=== PATIENT | female | born 1990 | race African-American/Black ===

== ENCOUNTER 2018-03-02 16:42 | Emergency (ER) | payer BC ==
[~2018-03-02] VITALS: Ht 160 cm; Wt 52.0 kg
[2018-03-02 17:49] LABS: BASOPHILS % 0.3 % (0.0-2.0); EOSINOPHILS % 0.3 % (0.0-5.0); HEMATOCRIT. 38.5 % (36.0-48.0); HEMOGLOBIN. 12.6 g/dL (12.0-16.0); LYMPHOCYTES % 15.5 % (20.0-50.0); MEAN CORPUSCULAR HEMOGLOBIN 27.1 pg (28.0-32.0); MEAN CORPUSCULAR VOLUME 82.7 fL (81.0-99.0); MEAN PLATELET VOLUME 8.9 fl (7.4-10.4); MONOCYTES % 7.3 % (2.0-8.0); NEUTROPHILS % 76.6 % (40.0-76.0); PLATELET 226 x1000/uL (130-400); RED BLOOD CELL COUNT 4.65 mill/uL (4.2-5.4); RED CELL DISTRIBUTION WIDTH 16.7 % (11.6-14.6)
[2018-03-02 17:53] LABS: CHLORIDE 102 mEq/L (98-107)
[2018-03-02 17:55] LABS: INR 1.1; PROTHROMBIN TIME 11.9 sec (9.4-11.6)
[2018-03-02 18:05] LABS: CLARITY URINE CLOUDY (CLEAR); COLOR URINE YELLOW (YELLOW); KETONES URINE 4+ (NEGATIVE); LEUKOCYTE ESTERASE URINE TRACE (NEGATIVE); NITRITE URINE NEGATIVE (NEGATIVE); OCCULT BLOOD URINE 1+ (NEGATIVE); PH URINE 6.5 (4.5-8.0); PROTEIN URINE TRACE (NEGATIVE); SPECIFIC GRAVITY URINE 1.034 (1.005-1.030); UROBILINOGEN URINE 0.2 E.U./dL (0.2-1.0)
[2018-03-02 18:16] LABS: B-HCG QUANTITATIVE 153949 mIU/mL (<3)
[2018-03-02] MEDS ORDERED: SODIUM CHLORIDE 0.9% 1,000 ML IV ONE (18:20)
[2018-03-02] MEDS ORDERED: ONDANSETRON HCL 4MG/2ML VIAL IV STA (18:20)
[2018-03-02] MEDS ORDERED: MAGNESIUM/ALUMINUM HYDROXIDE/SIMETHICONE 30ML UDC PO STA (18:20)
[2018-03-02] MEDS ORDERED: PANTOPRAZOLE SODIUM 40 MG/VIAL IV ONE (18:30)
[2018-03-02 22:50] VITALS: BP 103/51
== END 2018-03-03 04:39 | disposition home or self-care (01) ==
LOC: ER 16:44
DX: O21.0 Mild hyperemesis gravidarum (principal); O23.11 Infections of bladder in pregnancy, first trimester; O20.0 Threatened abortion; Z3A.08 8 weeks gestation of pregnancy
CPT/HCPCS: 36415; 76801; 80053; 81003; 83690; 84702; 85025; 85610; 86850; 86900; 86901; 96361; 96374; 96375; 99285; C9113; J2405; J7030

== ENCOUNTER 2018-10-04 13:04 | Observation (INO) | payer BC ==
[~2018-10-04 13:04] MED LIST: ACET-2178 PO; PREN1TAB23 PO
== END 2018-10-04 13:45 | disposition left against medical advice (07) ==
LOC: 8 EST LDRP 13:04
PROVIDERS: ADMIT Specialist; ATTEND Specialist
DX: O62.9 Abnormality of forces of labor, unspecified (principal); Z3A.38 38 weeks gestation of pregnancy
CPT/HCPCS: 99281; G0378

== ENCOUNTER 2018-10-04 14:13 | Inpatient (IN) | payer BC ==
[~2018-10-04] VITALS: Ht 160 cm; Wt 66.7 kg
[2018-10-04] MEDS ORDERED: NALOXONE HCL 0.4 MG/ML 1ML VIAL IM PRN (14:45)
[2018-10-04] MEDS ORDERED: LIDOCAINE HCL 1% 20ML VIAL (Pyxis) INJ INFIL PRN (14:45)
[2018-10-04] MEDS ORDERED: BUTORPHANOL TARTRATE 2 MG/ML VIAL IV PRN (14:45)
[2018-10-04] MEDS ORDERED: METHYLERGONOVINE MALEATE 0.2 MG/ML IM PRN (14:45)
[2018-10-04] MEDS ORDERED: MISOPROSTOL 100MCG TABLET VG PRN (14:45)
[2018-10-04 15:22] LABS: BASOPHILS % 0.2 % (0.0-2.0); EOSINOPHILS % 0.2 % (0.0-5.0); HEMATOCRIT. 35.8 % (36.0-48.0); LYMPHOCYTES % 14.5 % (20.0-50.0); MEAN CORPUSCULAR HEMOGLOBIN 30.4 pg (28.0-32.0); MEAN CORPUSCULAR VOLUME 90.6 fL (81.0-99.0); MEAN PLATELET VOLUME 9.7 fl (7.4-10.4); MONOCYTES % 5.5 % (2.0-8.0); NEUTROPHILS % 79.6 % (40.0-76.0); PLATELET 244 x1000/uL (130-400); RED BLOOD CELL COUNT 3.95 mill/uL (4.2-5.4); RED CELL DISTRIBUTION WIDTH 13.6 % (11.6-14.6)
[2018-10-04] MEDS: LACTATED RINGERS 1,000 ML IV SCH ×3 (15:23→20:41)
[2018-10-04 15:27] LABS: PARTIAL THROMBOPLASTIN TIME 29.5 sec (23.4-31.0)
[2018-10-04 15:27] LABS: CLARITY URINE CLEAR (CLEAR); COLOR URINE YELLOW (YELLOW); KETONES URINE NEGATIVE (NEGATIVE); LEUKOCYTE ESTERASE URINE TRACE (NEGATIVE); NITRITE URINE NEGATIVE (NEGATIVE); OCCULT BLOOD URINE NEGATIVE (NEGATIVE); PROTEIN URINE NEGATIVE (NEGATIVE); SPECIFIC GRAVITY URINE 1.009 (1.005-1.030); UROBILINOGEN URINE 0.2 E.U./dL (0.2-1.0)
[2018-10-04 15:42] LABS: *COCAINE SCREEN URINE NEGATIVE (NEGATIVE); CANNABINOID URINE SCREEN NEGATIVE (NEGATIVE); METHADONE URINE SCREEN NEGATIVE (NEGATIVE); OPIATES URINE SCREEN NEGATIVE (NEGATIVE); PHENCYCLIDINE URINE SCREEN NEGATIVE (NEGATIVE)
[2018-10-04 15:43] LABS: *AMPHETAMINES SCREEN URINE NEGATIVE (NEGATIVE); *BARBITURATES SCREEN URINE NEGATIVE (NEGATIVE); *BENZODIAZEPINES SCREEN URINE NEGATIVE (NEGATIVE)
[2018-10-04 16:03] LABS: HEPATITIS B SURFACE ANTIGEN NEGATIVE
[2018-10-04] MEDS: DEXT 5%/LR + PITOCIN 20UNITS/L 1,000 ML IV SCH (17:11)
[2018-10-04] MEDS ORDERED: DEXT 5%/LR + PITOCIN 20UNITS/L 1,000 ML IV SCH (23:35)
[2018-10-04] MEDS ORDERED: DIPHENHYDRAMINE 25MG CAPSULE PO PRN (23:45)
[2018-10-04] MEDS ORDERED: HEMORRHOIDAL SUPP PR PRN (23:45)
[2018-10-04] MEDS ORDERED: BISACODYL 10MG SUPP PR PRN (23:45)
[2018-10-04] MEDS ORDERED: GLYCERIN/WITCH HAZEL LEAF MEDICATED PAD TOP PRN (23:45)
[2018-10-04] MEDS ORDERED: ACETAMINOPHEN WITH CODEINE 300/30MG TABLET PO PRN (23:45)
[2018-10-04] MEDS ORDERED: TETANUS, DIPHTHERIA, PERTUSSIS VAC/PF 0.5ML (>7YR OLD) IM ONE (23:45)
[2018-10-04] MEDS ORDERED: IBUPROFEN 400MG TABLET PO PRN (23:45)
[2018-10-04] MEDS ORDERED: BENZOCAINE/LANOLIN/ALOE VERA SPRAY TOP PRN (23:45)
[2018-10-04] MEDS ORDERED: INFLUENZA VIRUS VACCINE(AFLURIA) 0.5ML SYR IM ONE (23:45)
[2018-10-04] MEDS ORDERED: LANOLIN OINT 0.25 GM TUBE TOP PRN (23:45)
[2018-10-05] MEDS: DEXT 5%/LR + PITOCIN 20UNITS/L 1,000 ML IV SCH (01:00)
[2018-10-05 01:15] VITALS: BP 132/80
[2018-10-05 02:00] VITALS: BP 126/79
[2018-10-05 08:00] VITALS: BP 104/43
[2018-10-05] MEDS: PRENATAL VIT/FE FUMARATE/FA TABLET PO SCH (09:11)
[2018-10-05] MEDS: FERROUS SULFATE 325MG TABLET PO SCH ×2 (12:48→17:21)
[2018-10-05] MEDS: IBUPROFEN 800MG TABLET PO PRN ×2 (14:47→20:36)
[2018-10-05 16:09] VITALS: BP 130/81
[2018-10-05 20:00] VITALS: BP 125/59
[2018-10-05] MEDS ORDERED: DOCUSATE SODIUM 100MG CAPSULE PO SCH (21:00)
[2018-10-06 01:18] VITALS: BP 108/57
[2018-10-06 04:00] VITALS: BP 99/50
[2018-10-06 09:00] VITALS: BP 113/72
[2018-10-06] MEDS: FERROUS SULFATE 325MG TABLET PO SCH (09:00)
[2018-10-06] MEDS: PRENATAL VIT/FE FUMARATE/FA TABLET PO SCH (09:00)
== END 2018-10-06 11:20 | disposition home or self-care (01) | DRG 807 ==
LOC: 8 EST LDRP 14:13 → OBSVTOIN 14:13 → 8EST 10-05 01:15
PROVIDERS: ADMIT Specialist; ATTEND Specialist
PROC: 10E0XZZ Delivery of Products of Conception, External Approach (ICD-10-PCS; principal; 2018-10-04)
PROC: 0HQ9XZZ Repair Perineum Skin, External Approach (ICD-10-PCS; 2018-10-04)
PROC: 3E0R3BZ Introduction of Anesthetic Agent into Spinal Canal, Percutaneous Approach (ICD-10-PCS; 2018-10-04)
PROC: 00HU33Z Insertion of Infusion Device into Spinal Canal, Percutaneous Approach (ICD-10-PCS; 2018-10-04)
PROC: 0W8NXZZ Division of Female Perineum, External Approach (ICD-10-PCS; 2018-10-04)
DX: O70.0 First degree perineal laceration during delivery (principal); Z37.0 Single live birth; Z3A.38 38 weeks gestation of pregnancy; Z80.0 Family history of malignant neoplasm of digestive organs; Z80.3 Family history of malignant neoplasm of breast
CPT/HCPCS: 36415; 80305; 86592; 86703; 86762; 86850; 86900; 87340; 90715; 99281; G0378; J2590; J3490; A4315

== ENCOUNTER 2021-02-11 13:59 | Emergency (ER) | payer BC ==
[~2021-02-11] VITALS: Ht 165.1 cm; Wt 59.0 kg
[~2021-02-11 13:59] MED LIST changes: -ACET-2178 PO
[2021-02-11] MEDS ORDERED: SODIUM CHLORIDE 0.9% 1,000 ML IV ONE (14:45)
[2021-02-11] MEDS ORDERED: ONDANSETRON HCL 4MG/2ML INJ IV NR (14:45)
[2021-02-11 14:55] LABS: CLARITY URINE CLEAR (CLEAR); COLOR URINE DARK YELLOW (YELLOW); KETONES URINE 2+ (NEGATIVE); LEUKOCYTE ESTERASE URINE NEGATIVE (NEGATIVE); NITRITE URINE NEGATIVE (NEGATIVE); OCCULT BLOOD URINE NEGATIVE (NEGATIVE); PH URINE 7.5 (4.5-8.0); PROTEIN URINE TRACE (NEGATIVE); SPECIFIC GRAVITY URINE 1.028 (1.005-1.030); UROBILINOGEN URINE 0.2 E.U./dL (0.2-1.0)
[2021-02-11 15:09] LABS: BASOPHILS % 0.3 % (0.0-2.0); EOSINOPHILS % 0.1 % (0.0-5.0); HEMATOCRIT. 34.6 % (36.0-48.0); HEMOGLOBIN. 11.8 g/dL (12.0-16.0); LYMPHOCYTES % 15.2 % (20.0-50.0); MEAN CORPUSCULAR HEMOGLOBIN 27.9 pg (28.0-32.0); MEAN CORPUSCULAR VOLUME 81.6 fL (81.0-99.0); MEAN PLATELET VOLUME 8.8 fl (7.4-10.4); MONOCYTES % 5.9 % (2.0-8.0); NEUTROPHILS % 78.5 % (40.0-76.0); PLATELET 232 x1000/uL (130-400); RED BLOOD CELL COUNT 4.24 mill/uL (4.2-5.4); RED CELL DISTRIBUTION WIDTH 18.3 % (11.6-14.6)
[2021-02-11 15:13] LABS: CHLORIDE 105 mEq/L (98-107)
[2021-02-11 15:57] LABS: B-HCG QUANTITATIVE 175490 mIU/mL (<3)
[2021-02-11] MEDS ORDERED: METO-293 MT (16:31)
[2021-02-11] MEDS ORDERED: PYRI25TA4 PO (16:31)
[2021-02-11 17:59] VITALS: BP 126/72
== END 2021-02-11 20:17 | disposition home or self-care (01) ==
LOC: ER 13:59
DX: O21.0 Mild hyperemesis gravidarum (principal); Z3A.11 11 weeks gestation of pregnancy
CPT/HCPCS: 36415; 76801; 76817; 80053; 81003; 81025; 83690; 84702; 85025; 93005; 96361; 96374; 99285; J2405; Z7610

== ENCOUNTER 2021-08-13 17:22 | Observation (INO) | payer BC ==
[~2021-08-13] VITALS: Ht 160 cm; Wt 65.8 kg
[~2021-08-13 17:22] MED LIST changes: +METO-293 MT; +PYRI25TA4 PO
[2021-08-13 18:41] LABS: BASOPHILS % 0.2 % (0.0-2.0); EOSINOPHILS % 0.8 % (0.0-5.0); HEMATOCRIT. 29.3 % (36.0-48.0); HEMOGLOBIN. 9.9 g/dL (12.0-16.0); LYMPHOCYTES % 21.3 % (20.0-50.0); MEAN CORPUSCULAR HEMOGLOBIN 30.3 pg (28.0-32.0); MEAN CORPUSCULAR VOLUME 89.8 fL (81.0-99.0); MEAN PLATELET VOLUME 8.6 fl (7.4-10.4); MONOCYTES % 11.7 % (2.0-8.0); PLATELET 267 x1000/uL (130-400); RED BLOOD CELL COUNT 3.26 mill/uL (4.2-5.4); RED CELL DISTRIBUTION WIDTH 13.5 % (11.6-14.6)
[2021-08-13 18:43] LABS: CLARITY URINE CLOUDY (CLEAR); COLOR URINE YELLOW (YELLOW); KETONES URINE TRACE (NEGATIVE); LEUKOCYTE ESTERASE URINE 1+ (NEGATIVE); NITRITE URINE NEGATIVE (NEGATIVE); OCCULT BLOOD URINE NEGATIVE (NEGATIVE); PH URINE 6.5 (4.5-8.0); PROTEIN URINE 1+ (NEGATIVE); SPECIFIC GRAVITY URINE 1.018 (1.005-1.030); UROBILINOGEN URINE 0.2 E.U./dL (0.2-1.0)
[2021-08-13 18:55] LABS: CHLORIDE 106 mEq/L (98-107)
[2021-08-13 18:57] LABS: D-DIMER 7.7 mg/L FEU (<0.50); PARTIAL THROMBOPLASTIN TIME 28.5 sec (23.4-31.0); PROTHROMBIN TIME 10.8 sec (9.6-11.0)
== END 2021-08-13 19:15 | disposition home or self-care (01) ==
LOC: 8 EST LDRP 17:22
PROVIDERS: ADMIT Obstetrics & Gynecology; ATTEND Obstetrics & Gynecology
DX: O26.893 Other specified pregnancy related conditions, third trimester (principal); R03.0 Elevated blood-pressure reading, without diagnosis of hypertension; Z79.01 Long term (current) use of anticoagulants; Z3A.38 38 weeks gestation of pregnancy
CPT/HCPCS: 36415; 59025; 76815; 76818; 80053; 81003; 84550; 85025; 85379; 85384; 85610; 85730; G0378; 99281; G0379

== ENCOUNTER 2021-08-19 07:05 | Observation (INO) | payer BC | END 2021-08-19 10:15 | disposition home or self-care (01) | LOC: 8 EST LDRP 07:05 | PROVIDERS: ADMIT Obstetrics & Gynecology; ATTEND Obstetrics & Gynecology | DX: O26.893 Other specified pregnancy related conditions, third trimester (principal); R10.9 Unspecified abdominal pain; Z3A.38 38 weeks gestation of pregnancy | CPT/HCPCS: 59025; 76815; 76818; G0378; 99281 ==

== ENCOUNTER 2021-08-21 07:16 | Observation (INO) | payer BC ==
[~2021-08-21] VITALS: Ht 167.6 cm; Wt 74.4 kg
== END 2021-08-21 10:50 | disposition home or self-care (01) ==
LOC: 8 EST LDRP 07:16
PROVIDERS: ADMIT Obstetrics & Gynecology; ATTEND Obstetrics & Gynecology
DX: O62.9 Abnormality of forces of labor, unspecified (principal); O26.893 Other specified pregnancy related conditions, third trimester; R10.9 Unspecified abdominal pain; Z3A.39 39 weeks gestation of pregnancy
CPT/HCPCS: 59025; G0378; 99281

== ENCOUNTER 2021-08-21 21:27 | Inpatient (IN) | payer BC ==
[~2021-08-21] VITALS: Ht 160 cm; Wt 63.5 kg
[2021-08-21] MEDS ORDERED: METHYLERGONOVINE MALEATE 0.2 MG/ML IM PRN (22:15)
[2021-08-21] MEDS ORDERED: NALOXONE HCL 0.4 MG/ML 1ML VIAL IM PRN (22:15)
[2021-08-21] MEDS ORDERED: LIDOCAINE HCL 1% 20ML VIAL (Pyxis) INJ INFIL SCH (22:15)
[2021-08-21] MEDS ORDERED: CARBOPROST TROMETHAMINE 250 MCG/ML AMPUL IM PRN (22:15)
[2021-08-21] MEDS ORDERED: BUTORPHANOL TARTRATE 2 MG/ML VIAL IV PRN (22:15)
[2021-08-21] MEDS ORDERED: DEXT 5%/LR + PITOCIN 20UNITS/L 1,000 ML IV SCH ×2 (22:15→23:30)
[2021-08-21] MEDS ORDERED: LACTATED RINGERS 1,000 ML IV SCH (22:15)
[2021-08-21 22:42] LABS: CLARITY URINE CLEAR (CLEAR); COLOR URINE YELLOW (YELLOW); KETONES URINE 1+ (NEGATIVE); LEUKOCYTE ESTERASE URINE TRACE (NEGATIVE); NITRITE URINE NEGATIVE (NEGATIVE); OCCULT BLOOD URINE 2+ (NEGATIVE); PROTEIN URINE 1+ (NEGATIVE); SPECIFIC GRAVITY URINE 1.021 (1.005-1.030)
[2021-08-21 22:51] LABS: *AMPHETAMINES SCREEN URINE NEGATIVE (NEGATIVE); *BARBITURATES SCREEN URINE NEGATIVE (NEGATIVE); *BENZODIAZEPINES SCREEN URINE NEGATIVE (NEGATIVE); *COCAINE SCREEN URINE NEGATIVE (NEGATIVE)
[2021-08-21 22:53] LABS: CANNABINOID URINE SCREEN NEGATIVE (NEGATIVE); METHADONE URINE SCREEN NEGATIVE (NEGATIVE); OPIATES URINE SCREEN NEGATIVE (NEGATIVE); PARTIAL THROMBOPLASTIN TIME 28.1 sec (23.4-31.0); PHENCYCLIDINE URINE SCREEN NEGATIVE (NEGATIVE); PROTHROMBIN TIME 10.9 sec (9.6-11.0)
[2021-08-21 23:21] LABS: HEPATITIS B SURFACE ANTIGEN NEGATIVE
[2021-08-21] MEDS ORDERED: PENICILLIN G POTASSIUM 5 MMU in DEXT 5% WATER 100 ML IV SCH (23:30)
[2021-08-21] MEDS ORDERED: RHO(D) IMMUNE GLOBULIN 300 MCG/SYR IM PRN (23:30)
[2021-08-21] MEDS ORDERED: IBUPROFEN 400MG TABLET PO PRN (23:30)
[2021-08-22 01:10] LABS: CHLORIDE 108 mEq/L (98-107)
[2021-08-22 02:00] VITALS: BP 141/61
[2021-08-22 02:30] VITALS: BP 135/70
[2021-08-22] MEDS: IBUPROFEN 800MG TABLET PO PRN ×3 (02:33→21:37)
[2021-08-22 03:00] VITALS: BP 144/82
[2021-08-22] MEDS ORDERED: INFLUENZA VACCINE 05/PF 0.5 ML SYRINGE IM ONE (03:15)
[2021-08-22] MEDS ORDERED: PENICILLIN G POTASSIUM 2.5 MMU in DEXTROSE 5% WATER 50 ML IV SCH (03:30)
[2021-08-22] MEDS: POTASSIUM CHLORIDE 20MEQ TABLET SR PO SCH ×2 (07:23→09:01)
[2021-08-22] MEDS ORDERED: TETANUS, DIPHTHERIA, PERTUSSIS VAC/PF 0.5ML (>10YR OLD) IM ONE (08:00)
[2021-08-22 08:20] VITALS: BP 140/79
[2021-08-22] MEDS: PRENATAL VIT/FE FUMARATE/FA TABLET PO SCH (09:01)
[2021-08-22] MEDS: FERROUS SULFATE 325MG TABLET PO SCH ×2 (09:01→14:13)
[2021-08-22 10:20] LABS: BASOPHILS % 0.1 % (0.0-2.0); EOSINOPHILS % 0.2 % (0.0-5.0); HEMATOCRIT. 28.2 % (36.0-48.0); HEMOGLOBIN. 9.7 g/dL (12.0-16.0); LYMPHOCYTES % 12.9 % (20.0-50.0); MEAN CORPUSCULAR HEMOGLOBIN 31.1 pg (28.0-32.0); MEAN CORPUSCULAR VOLUME 90.4 fL (81.0-99.0); MEAN PLATELET VOLUME 8.8 fl (7.4-10.4); MONOCYTES % 7.8 % (2.0-8.0); PLATELET 227 x1000/uL (130-400); RED BLOOD CELL COUNT 3.12 mill/uL (4.2-5.4); RED CELL DISTRIBUTION WIDTH 13.4 % (11.6-14.6)
[2021-08-22 16:30] VITALS: BP 136/74
[2021-08-22 20:00] LABS: CHLORIDE 106 mEq/L (98-107)
[2021-08-22 22:00] VITALS: BP 131/77
[2021-08-23] VITALS: BP 125/83
[2021-08-23 05:25] VITALS: BP 131/80
[2021-08-23 07:30] VITALS: BP 145/79
[2021-08-23] MEDS: PRENATAL VIT/FE FUMARATE/FA TABLET PO SCH (08:27)
[2021-08-23] MEDS: FERROUS SULFATE 325MG TABLET PO SCH ×3 (08:27→17:53)
[2021-08-23 09:33] LABS: BASOPHILS % 0.3 % (0.0-2.0); EOSINOPHILS % 0.7 % (0.0-5.0); HEMOGLOBIN. 7.1 g/dL (12.0-16.0); LYMPHOCYTES % 15.8 % (20.0-50.0); MEAN CORPUSCULAR HEMOGLOBIN 31.1 pg (28.0-32.0); MEAN CORPUSCULAR VOLUME 90.4 fL (81.0-99.0); MONOCYTES % 6.3 % (2.0-8.0); NEUTROPHILS % 76.9 % (40.0-76.0); PLATELET 209 x1000/uL (130-400); RED BLOOD CELL COUNT 2.28 mill/uL (4.2-5.4); RED CELL DISTRIBUTION WIDTH 13.8 % (11.6-14.6)
[2021-08-23 09:36] LABS: HEMATOCRIT. 20.6 % (36.0-48.0)
[2021-08-23] MEDS: IBUPROFEN 800MG TABLET PO PRN (13:00)
[2021-08-23 15:30] VITALS: BP 136/77
[2021-08-23 18:44] LABS: HEMATOCRIT 21.6 % (36.0-48.0); HEMOGLOBIN 7.2 g/dL (12.0-16.0); MEAN CORPUSCULAR HEMOGLOBIN 30.6 pg (28.0-32.0); MEAN CORPUSCULAR VOLUME 92.2 fL (81.0-99.0); PLATELET 230 x1000/uL (130-400); RED BLOOD CELL COUNT 2.34 mill/uL (4.2-5.4); RED CELL DISTRIBUTION WIDTH 13.4 % (11.6-14.6)
[2021-08-23] MEDS ORDERED: IBUP-2030 MT (19:40)
[2021-08-23 20:00] VITALS: BP 126/85
[2021-08-24 04:30] VITALS: BP 126/72
[2021-08-24 07:30] VITALS: BP 127/59
== END 2021-08-24 10:15 | disposition home or self-care (01) | DRG 806 ==
LOC: 8 EST LDRP 21:27 → 8EST 08-22 02:18
PROVIDERS: ADMIT Obstetrics & Gynecology; ATTEND Obstetrics & Gynecology
PROC: 10E0XZZ Delivery of Products of Conception, External Approach (ICD-10-PCS; principal; 2021-08-21)
DX: O99.284 Endocrine, nutritional and metabolic diseases complicating childbirth (principal); D62 Acute posthemorrhagic anemia; Z37.0 Single live birth; O34.13 Maternal care for benign tumor of corpus uteri, third trimester; O72.1 Other immediate postpartum hemorrhage; Z20.822 Contact with and (suspected) exposure to COVID-19; D25.9 Leiomyoma of uterus, unspecified; E87.6 Hypokalemia; Z3A.39 39 weeks gestation of pregnancy; O90.81 Anemia of the puerperium
CPT/HCPCS: 36415; 76856; 80053; 80305; 81003; 84550; 85025; 85027; 85384; 86592; 86703; 86762; 86850; 86900; 87340; 87426; 90715; G0378; J0595; J2310; J2540; J2590; J3490; J7060

== ENCOUNTER 2025-03-31 04:41 | Inpatient (IN) | payer BC, OTHER ==
[~2025-03-31] VITALS: Ht 160 cm; Wt 56.8 kg
[~2025-03-31 04:41] MED LIST changes: +IBUP-2030 MT; -METO-293 MT
[2025-03-31 04:48] VITALS: O2SAT 100
[2025-03-31] MEDS: LABETALOL 5MG/ML 4ML INJ IV ONE (05:06)
[2025-03-31] MEDS: MAGNESIUM 4 G PREMIX 100 ML IV ONE (05:26)
[2025-03-31 05:36] LABS: CREATININE 1.0 mg/dL (0.6-1.0); TROPONIN I HIGH SENSITIVITY 11 ng/L (3.0-34); UREA NITROGEN BLOOD 13 mg/dL (9-23)
[2025-03-31 05:38] LABS: ASPARTATE AMINOTRANSFERASE 19 IU/L (<34); BASOPHILS % 0.8 % (0.0-2.0); BILIRUBIN DIRECT 0.1 mg/dL (<=3.0); EOSINOPHILS % 2.3 % (0.0-5.0); HEMATOCRIT. 43.1 % (36.0-48.0); HEMOGLOBIN. 14.8 g/dL (12.0-16.0); LYMPHOCYTES % 50.0 % (20.0-50.0); MEAN PLATELET VOLUME 9.8 fl (7.4-10.4); MONOCYTES % 9.3 % (2.0-8.0); NEUTROPHILS % 37.6 % (40.0-76.0); PLATELET 222 x1000/uL (130-400); RED BLOOD CELL COUNT 5.02 mill/uL (4.2-5.4); RED CELL DISTRIBUTION WIDTH 13.2 % (11.6-14.6)
[2025-03-31 05:39] LABS: BILIRUBIN TOTAL 0.4 mg/dL (0.1-1.0); PROTEIN TOTAL 8.1 g/dL (6.0-8.3)
[2025-03-31] MEDS: IOHEXOL-350 100 ML BOTTLE ONE (05:41)
[2025-03-31 06:42] LABS: HCG SCREEN NEGATIVE
[2025-03-31 08:00] VITALS: BP 152/90; PULSE 78; RESP 18; TEMP 36.6; O2SAT 98
[2025-03-31 08:12] LABS: CLARITY URINE CLEAR (CLEAR); COLOR URINE YELLOW (YELLOW); PH URINE 7.5 (4.5-8.0); PROTEIN URINE NEGATIVE (NEGATIVE); SPECIFIC GRAVITY URINE 1.042 (1.005-1.030)
[2025-03-31 08:13] LABS: GLUCOSE URINE NEGATIVE (NEGATIVE); KETONES URINE NEGATIVE (NEGATIVE); LEUKOCYTE ESTERASE URINE NEGATIVE (NEGATIVE); NITRITE URINE NEGATIVE (NEGATIVE); OCCULT BLOOD URINE NEGATIVE (NEGATIVE); UROBILINOGEN URINE 0.2 E.U./dL (0.2-1.0)
[2025-03-31 09:29] VITALS: BP 152/90; PULSE 78; RESP 18; TEMP 36.6404
[2025-03-31] MEDS ORDERED: HYDR25TA MT (09:41)
[2025-03-31] MEDS ORDERED: METHYLPREDNISOLONE SOD SUCC 500 MG in DEXT 5% WATER 100 ML IV ONE (10:45)
[2025-03-31] MEDS ORDERED: MAGNESIUM 2 G PREMIX 50 ML IV ONE (11:15)
[2025-03-31] MEDS: METHYLPREDNISOLONE SOD SUCC 125MG/2ML (ACT-O-VIAL) IV SCH (11:25)
[2025-03-31 11:51] VITALS: BP 135/92; PULSE 86; RESP 17; TEMP 36.5; O2SAT 98
[2025-03-31] MEDS ORDERED: HYDROCORTISONE SOD SUCCINATE 100 MG/2 ML VIAL IV SCH (14:00)
[2025-03-31 16:00] VITALS: BP 162/103; PULSE 102; RESP 18; TEMP 36.2; O2SAT 98
[2025-03-31] MEDS: POTASSIUM CHLORIDE 20MEQ TABLET SR PO SCH (16:52)
[2025-03-31] MEDS ORDERED: POTASSIUM CHLORIDE 20MEQ TABLET SR PO SCH (21:00)
[2025-04-01] MEDS ORDERED: HYDROCHLOROTHIAZIDE 25MG TABLET PO SCH (09:00)
== END 2025-03-31 19:00 | disposition left against medical advice (07) | DRG 305 ==
LOC: ER 04:41 → 8WST 06:46 → EDBEDREQ 06:47 → EDBEDREQTM 06:47 → ENRESERV 07:49 → 8WST 08:41
PROVIDERS: ADMIT Internal Medicine; ATTEND Internal Medicine
DX: I16.0 Hypertensive urgency (principal); J45.909 Unspecified asthma, uncomplicated; M54.9 Dorsalgia, unspecified; I10 Essential (primary) hypertension; Z53.29 Procedure and treatment not carried out because of patient's decision for other reasons
CPT/HCPCS: 36415; 71045; 71046; 71275; 80048; 80076; 81003; 83735; 83880; 84484; 84703; 85025; 85379; 93005; 99285; A4606; J2919; J3475; J3490; Q9967